=== PATIENT | male | born 2000 | race Caucasian/White ===

== ENCOUNTER 2020-07-22 14:51 | Emergency (ER) | payer SELFPAY ==
--- NOTE | 2020-07-22 15:01 | EDM.PDOC ---
ED HPI GENERAL MEDICAL PROBLEM - General Chief Complaint: Laceration Stated Complaint: LACERATION RIGHT HAND Time Seen by Provider: 07/22/20 14:56 Source of Information: Reports: Patient History Limitations: Reports: No Limitations - History of Present Illness INITIAL COMMENTS - FREE TEXT/NARRATIVE: 19-year-old male presents for hand laceration. Patient was working on an oil f ield when he slipped, fell and while falling he grabbed onto a piece of metal machinery lacerating his right palmar hypothenar eminence. Minimal amount of bleeding afterwards easily controlled with pressure dressing. Patient is uncertain of his last tetanus vaccination Right Hand Pain Score (Numeric/FACES): 6 - Related Data Allergies Allergy/AdvReac Type Severity Reaction Status Date / Time No Known Allergies Allergy Verified 07/22/20 15:08 Home Meds: Home Meds . [No Known Home Meds] 07/22/20 [History] ED ROS GENERAL - Review of Systems Review Of Systems: Comprehensive ROS is negative, except as noted in HPI. 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 ) Neurological: Alert, Normal Gait Psychiatric: Normal Affect, Normal Mood Skin: Warm, Dry, Intact ED SKIN PROCEDURES - Laceration/Wound Repair Right Ventral Hand Appearance: Superficial, Subcutaneous Distal NVT: Neuro & Vascular Intact Anesthetic Type: Local Local Anesthesia - Lidocaine (Xylocaine): 1% with EPI Local Anesthetic Volume: 5cc Skin Prep: Chlorhexidine (Hibiciens) Saline Irrigation (cc's): 100 Exploration/Debridement/Repair: Wound Explored Closed with: Sutures Lac/Wound length In cm: 2 Suture Size: 4-0 # of Sutures: 5 Suture Type: Nylon Drain Placement: No Sterile Dressing Applied: Nurse Tetanus Status Addressed: Yes Complications: No Course - Vital Signs Last Recorded V/S: Last Vital Signs Temp 97.1 F 07/22/20 15:09 Pulse 90 07/22/20 15:09 Resp 16 07/22/20 15:09 BP 129/64 07/22/20 15:09 Pulse Ox 97 07/22/20 15:09 - Orders/Labs/Meds Orders: Active Orders 24 hr Category Date Time Status Vaccines to be Administered [RC] PER UNIT ROUTINE Care 07/22/20 15:05 Active Meds: Medications Discontinued Medications Generic Name Dose Route Start Last Admin Trade Name Jacob PRN Reason Stop Dose Admin Diphtheria/Tetanus/Acell Pertussis 0.5 ml 07/22/20 15:05 07/22/20 15:16 Boostrix IM 07/22/20 15:06 0.5 ml .ONCE ONE Administration Lidocaine/Epinephrine 10 ml 07/22/20 15:05 07/22/20 15:17 Xylocaine 1% With Epinephrine 1:100,000 INJECT 07/22/20 15:06 Not Given ONETIME ONE Lidocaine/Epinephrine 20 ml 07/22/20 15:15 07/22/20 15:17 Xylocaine 1% With Epinephrine 1:100,000 INJECT 07/22/20 15:16 20 ml ONETIME ONE Administration Lidocaine/Epinephrine Confirm 07/22/20 15:14 07/22/20 15:18 Xylocaine 1% With Epinephrine 1:100,000 Administered 07/22/20 15:15 Not Given Dose 20 ml .ROUTE .STK-MED ONE - Re-Assessments/Exams Free Text/Narrative Re-Assessment/Exam: 07/22/20 15:06 We will update patient's Tdap, will repair laceration. Departure - Departure Time of Disposition: 15:41 Disposition: Home, Self-Care 01 Condition: Good Clinical Impression: Laceration - Discharge Information Instructions: Laceration Care, Adult, [id number] Referrals: PCP,None [Primary Care Provider] - Forms: ED Department Discharge Additional Instructions: You should come back in 7 to 10 days to have your sutures removed. The following information is given to patients seen in the emergency department who are being discharged to home. This information is to outline your options for follow-up care. We provide all patients seen in our emergency department with a follow-up referral. The need for follow-up, as well as the timing and circumstances, are variable depending upon the specifics of your emergency department visit. If you don't have a primary care physician on staff, we will provide you with a referral. We always advise you to contact your personal physician following an emergency department visit to inform them of the circumstance of the visit and for follow-up with them and/or the need for any referrals to a consulting specialist. The emergency department will also refer you to a specialist when appropriate. This referral assures that you have the opportunity for follow-up care with a specialist. All of these measure are taken in an effort to provide you with optimal care, which includes your follow-up. Under all circumstances we always encourage you to contact your private physician who remains a resource for coordinating your care. When calling for follow-up care, please make the office aware that this follow-up is from your recent emergency room visit. If for any reason you are refused follow-up, please contact the [facility] Emergency Department at and asked to speak to the emergency department charge nurse. Please follow up with your primary care physician. If you do not have a primary care physician, see below: [facility] [address] [place] [id number] [facility] [address] [place] [id number] Sepsis Event Note (ED) - Focused Exam Vital Signs: Vital Signs Temp Pulse Resp BP Pulse Ox 07/22/20 15:09 97.1 F 90 16 129/64 97 - My Orders Last 24 Hours: My Active Orders 07/22/20 15:05 Vaccines to be Administered [RC] PER UNIT ROUTINE - Assessment/Plan Last 24 Hours: My Active Orders 07/22/20 15:05 Vaccines to be Administered [RC] PER UNIT ROUTINE
[2020-07-22] MEDS ORDERED: Diphtheria,Pertussis(Acell),Tetanus Vaccine 0.5 ML Syringe IM ONE (15:05)
[2020-07-22] MEDS ORDERED: Lidocaine 1% with EPINEPHrine 1:100,000 10 ML MDV INJECT ONE (15:05)
[2020-07-22] MEDS ORDERED: Lidocaine 1% with EPINEPHrine 1:100,000 20 ML MDV ONE (15:14)
[2020-07-22] MEDS ORDERED: Lidocaine 1% with EPINEPHrine 1:100,000 20 ML MDV INJECT ONE (15:15)
== END 2020-07-22 15:57 | disposition home or self-care (01) ==
LOC: MW.ED 14:51
DX: S61.411A Laceration without foreign body of right hand, initial encounter (principal); W26.8XXA Contact with other sharp object(s), not elsewhere classified, initial encounter
CPT/HCPCS: 12001; 90471; 99282; 99282-25

== ENCOUNTER 2020-07-30 17:19 | Emergency (ER) | payer SELFPAY | END 2020-07-30 18:25 | disposition home or self-care (01) | LOC: MW.ED 17:19 | DX: S61.411D Laceration without foreign body of right hand, subsequent encounter (principal); X58.XXXD Exposure to other specified factors, subsequent encounter | CPT/HCPCS: 99281 ==

== ENCOUNTER 2025-07-20 15:06 | Emergency (ER) | payer OTHER ==
[2025-07-20] MEDS: Diphtheria,Pertussis(Acell),Tetanus Vaccine 0.5 ML Syringe IM ONE (17:26)
[2025-07-20] MEDS: Lidocaine 1% PF 2 ML SDV INJECT ONE (17:27)
[2025-07-20] MEDS: Bacitracin Oint 1 GM U/D Packet TOP ONE (17:27)
== END 2025-07-20 17:46 | disposition home or self-care (01) ==
LOC: MW.ED 15:06
DX: S61.211A Laceration without foreign body of left index finger without damage to nail, initial encounter (principal); Z75.3 Unavailability and inaccessibility of health-care facilities; W26.8XXA Contact with other sharp object(s), not elsewhere classified, initial encounter
CPT/HCPCS: 12001; 90471; 90715; 99282; J2003; 99283